=== PATIENT | female | born 1950 | race Caucasian/White ===

== ENCOUNTER 2018-01-16 12:32 | Emergency (ER) | payer OTHER ==
[~2018-01-16] VITALS: Ht 149.9 cm; Wt 57.6 kg
[2018-01-16 12:56] VITALS: Ht 149.9 cm; Wt 57.6 kg
[2018-01-16 13:53] LABS: BASOPHIL % 0.5 % (0-2); PLATELET COUNT 260 x10^3mcL (130-400); RED CELL DISTRIBUTION WIDTH 13.3 % (11.5-14.5)
[2018-01-16 14:03] LABS: CALCIUM 8.2 mg/dL (8.5-10.1); CARBON DIOXIDE 26.6 mmol/L (21-32); POTASSIUM SERUM 3.8 mmol/L (3.5-5.1)
[2018-01-16 14:07] LABS: ALBUMIN 3.6 g/dL (3.4-5.0); BILIRUBIN TOTAL 0.42 mg/dL (0.20-1.00)
[2018-01-16 14:08] LABS: TOTAL PROTEIN, SERUM 8.7 g/dL (6.4-8.2)
[2018-01-16 15:04] VITALS: BP 145/64
== END 2018-01-16 15:04 | disposition home or self-care (01) ==
LOC: ED 12:32
PROVIDERS: Emergency Medicine
DX: K52.89 Other specified noninfective gastroenteritis and colitis (principal); E11.9 Type 2 diabetes mellitus without complications
CPT/HCPCS: J2405; J7030